=== PATIENT | female | born 1940 | race Caucasian/White ===

== ENCOUNTER → 2022-12-15 | Outpatient (CLI) | payer MEDICARE ==
[~2022-12-15] MED LIST: IBP600T1 PO; MULT-963 PO
--- NOTE | 2022-12-15 20:10 | Diagnostic Imaging Report ---
Indication: Palpable lump left breast. Correlation is made with diagnostic mammogram earlier same day. Sonographic interrogation of the area of palpable lump medial left breast was performed. There are 2 circumscribed masses in the left breast at the 9:00 location, 4 to 5 cm from the nipple. The largest measures 1.8 x 1.4 x 1.8 cm. Adjacent to this is a 1.6 x 1.2 x 1.7 cm mass. This does show some cystic component but there are internal echoes, uncertain if this is solid versus a complex cystic mass. There is vascularity along the periphery but no definite internal vascularity. IMPRESSION: BI-RADS Category 4 Mixed echogenicity circumscribed mass at the 9:00 location of the left breast corresponding to the mammographic and palpable abnormalities. It is uncertain if this represents a complex cyst versus solid masses. Tissue sampling would be recommended. These would be amenable to ultrasound-guided biopsy. ACR BI-RADS Category 4: Suspicious abnormality. Result letter will be mailed to the patient. Note: At least 10% of breast cancer is not imaged by mammography. Dictated by: Dictated on workstation # [id number]
--- NOTE | 2022-12-15 20:15 | Diagnostic Imaging Report ---
Indication: Palpable lump, left breast. No prior mammograms are available for comparison. 2-D and 3-D bilateral diagnostic mammography was performed with CAD. A BB marker was placed at the area of palpable abnormality in the medial left breast. Both breasts are heterogeneously dense, limiting the sensitivity of mammography. There are 2 circumscribed masses in the medial aspect of the left breast at the area of palpable abnormality. No other masses are seen. There are benign calcifications. No malignant-appearing microcalcifications are seen. Axillae are unremarkable. IMPRESSION: BI-RADS 0 Circumscribed masses medial left breast at the area of palpable abnormality. Further evaluation with ultrasound is recommended and will be performed today. ACR BI-RADS Category 0: Incomplete. (Needs additional imaging evaluation). Result letter will be mailed to the patient. Note: At least 10% of breast cancer is not imaged by mammography. Dictated by: Dictated on workstation # [id number]
== END ==
LOC: RAD 13:30
PROVIDERS: ATTEND Family Medicine
DX: N63.20 Unspecified lump in the left breast, unspecified quadrant (principal)
CPT/HCPCS: 76642; 77066; G0279; 77062

== ENCOUNTER → 2022-12-19 | Outpatient (CLI) | payer MEDICARE ==
[~2022-12-19] VITALS: Ht 157.5 cm; Wt 61.8 kg
[~2022-12-19] MED LIST changes: +LIDOCAINE 1% INJ 10 ML VIAL INJ ONE; +LIDOCAINE 1% INJ 10 ML VIAL ONE
--- NOTE | 2022-12-19 10:22 | Diagnostic Imaging Report ---
INDICATION: Left breast nodule. Patient presents for aspiration and biopsy. Left breast was prepped and draped in the usual sterile fashion. The dominant complex nodule in the inferior 9:00 location of the left breast was accessed using an 18-gauge needle, using sonographic guidance. Aspiration was performed. A small amount of bloody fluid was removed. This will be sent to lab for cytology. Needle was withdrawn, hemostasis was obtained. Patient tolerated the procedure well. IMPRESSION: Successful aspiration of the dominant complex mass in the inferior 9:00 location left breast, utilizing sonographic guidance. Pathology results are currently pending. Dictated by: Dictated on workstation # [id number]
--- NOTE | 2022-12-19 12:28 | Diagnostic Imaging Report ---
INDICATION: Left breast nodules. Patient presents for ultrasound-guided core biopsy. Left breast was prepped and draped in usual sterile fashion. A small amount 1% lidocaine was utilized for local anesthesia. Multiple core biopsies were obtained of the complex nodule in the superior 9 o'clock location of the left breast utilizing 14-gauge Achieve needle. The needle was withdrawn and hemostasis was obtained. Patient tolerated the procedure well. IMPRESSION: Successful ultrasound-guided core biopsy of the complex nodule in the superior 9 o'clock location of the left breast. Pathology results are currently pending. Dictated by: Dictated on workstation # [id number]
--- NOTE | 2022-12-19 12:32 | Diagnostic Imaging Report ---
INDICATION: Left breast nodule. Patient presents for core biopsy. Left breast was prepped and draped in the usual sterile fashion. Small amount 1% lidocaine was utilized for local anesthesia. Multiple core biopsies were obtained of the dominant complex nodule in the inferior 9 o'clock location of the left breast utilizing a 14-gauge Achieve needle. A marker clip was then deployed. Hemostasis was obtained using manual compression. Patient tolerated the procedure well. IMPRESSION: Successful ultrasound-guided core biopsy of the dominant complex nodule inferior 9 o'clock location left breast. Pathology results are currently pending. Dictated by: Dictated on workstation # [id number]
--- NOTE | 2022-12-19 12:39 | Diagnostic Imaging Report ---
INDICATION: Left breast masses. Patient is status post ultrasound-guided aspiration and biopsy of the medial left breast masses. Unilateral left 2-D CC and ML mammography was performed after patient underwent left breast aspirations and biopsies. There is a marker clip in the dominant lesion in the medial left breast. IMPRESSION: Marker clip placement medial left breast mass, status post ultrasound-guided biopsy. Dictated by: Dictated on workstation # [id number]
--- NOTE | 2022-12-19 12:46 | Diagnostic Imaging Report ---
INDICATION: Left breast nodule. PROCEDURE: Patient presents for ultrasound-guided aspiration. The left breast was prepped and draped in the usual sterile fashion. A small amount of 1% lidocaine was utilized for local anesthesia. An 18-gauge needle was advanced into the complex nodule in the superior 9:00 location of the left breast. A small amount of fluid was aspirated. Fluid was blood tinged. Needle was removed. Hemostasis was obtained. The patient tolerated the procedure well. IMPRESSION: Successful ultrasound guided aspiration of the complex nodule in the superior 9:00 location of the left breast. Fluid will be sent for cytology. Dictated by: Dictated on workstation # [id number]
== END ==
LOC: RAD 08:14
PROVIDERS: ATTEND Nurse Practitioner Family
DX: N63.20 Unspecified lump in the left breast, unspecified quadrant (principal); R92.8 Other abnormal and inconclusive findings on diagnostic imaging of breast; Z98.82 Breast implant status
CPT/HCPCS: 19083; 19084; 77065; A4648; G0279; 10005

== ENCOUNTER 2023-01-06 09:33 | Outpatient (RCR) | payer MEDICARE ==
[~2023-01-06 09:33] MED LIST changes: -LIDOCAINE 1% INJ 10 ML VIAL INJ ONE; -LIDOCAINE 1% INJ 10 ML VIAL ONE
[2023-01-07] MEDS ORDERED: DOXY100C5 PO ×2 (15:10)
[2023-01-07] MEDS ORDERED: METR45CR TP ×2 (15:10)
[2023-01-07] MEDS ORDERED: DOCU-26 PO ×2 (15:10)
[2023-01-14] MEDS ORDERED: ACHD5005 PO ×2 (11:29)
== END 2023-01-24 | disposition home or self-care (01) ==
LOC: ONC 09:33
PROVIDERS: ATTEND Internal Medicine Hematology & Oncology
DX: C50.912 Malignant neoplasm of unspecified site of left female breast (principal)

== ENCOUNTER 2023-01-07 05:59 | Outpatient (CLI) | payer MEDICARE ==
[~2023-01-07] VITALS: Ht 165.1 cm; Wt 67.3 kg
[2023-01-07] MEDS ORDERED: METR45CR TP (15:10)
[2023-01-07] MEDS ORDERED: DOCU-26 PO (15:10)
[2023-01-07] MEDS ORDERED: DOXY100C5 PO (15:10)
== END 2023-01-07 15:39 | disposition home or self-care (01) ==
LOC: PREOP 05:59
PROVIDERS: ATTEND Surgery
DX: Z01.818 Encounter for other preprocedural examination (principal)

== ENCOUNTER 2023-01-14 08:53 | Day surgery (SDC) | payer MEDICARE ==
[~2023-01-14] VITALS: Ht 165.1 cm; Wt 67.3 kg
[2023-01-14] VITALS (11 sets, daily range): BP systolic 124–143; BP diastolic 57–66
[~2023-01-14 08:53] MED LIST changes: +DOCU-26 PO; +DOXY100C5 PO; +METR45CR TP
[2023-01-14] MEDS ORDERED: LIDOCAINE/EPI 1%-1:200,000 (XYLOCAINE) 30 ML VIAL ONE (09:12)
[2023-01-14] MEDS ORDERED: ceFAZolin INJECTION 2,000 MG ONE (10:10)
[2023-01-14] MEDS ORDERED: NS (IVPB) 50 ML 50 ML ONE (10:10)
[2023-01-14] MEDS ORDERED: fentaNYL INJECTION 100 MCG/2 ML VIAL ONE (10:14)
[2023-01-14] MEDS ORDERED: proPOfol INJECTION 200 MG/20 ML VIAL IV ONE (10:14)
[2023-01-14] MEDS ORDERED: ONDANSETRON INJECTION 4 MG/2 ML (SDV) ONE (10:14)
[2023-01-14] MEDS ORDERED: LIDOCAINE PF 2% 5 ML VIAL ONE (10:14)
[2023-01-14] MEDS ORDERED: CATHETER FLUSH 10 ML SYR IVP PRN (10:15)
[2023-01-14] MEDS ORDERED: ceFAZolin INJECTION 2,000 MG in NS (IVPB) 50 ML 50 ML IV ONE (10:15)
[2023-01-14] MEDS ORDERED: LACTATED RINGERS 1,000 ML 1,000 ML IV PRN (10:15)
--- NOTE | 2023-01-14 10:18 | Progress Note-Pre Operative ---
Pre-Operative Progress Note Date of Available H&P: Dec 30, 2022 Date H&P Reviewed: Jan 14, 2023 Time H&P Reviewed: 10:15 History & Physical: H&P Reviewed, Patient Examed, No changes noted Pre-Operative Diagnosis: Left breast Papillary CA, site marked ABHIJIT VASQUEZ DO Jan 14, 2023 10:18
[2023-01-14] MEDS ORDERED: LIDOCAINE/EPI 1%-1:200,000 (XYLOCAINE) 30 ML VIAL INJ ONE (10:45)
[2023-01-14] MEDS ORDERED: SEVOFLURANE (ULTANE) 15 ML INHAL SOLN ONE (11:13)
--- NOTE | 2023-01-14 11:22 | Anesthesia-General Post-Op ---
General Patient Condition Mental Status/LOC: Same as Preop Cardiovascular: Satisfactory Nausea/Vomiting: Absent Respiratory: Satisfactory Pain: Controlled Complications: Absent Post Op Complications Complications None Follow Up Care/Instructions Patient Instructions None needed. Anesthesia/Patient Condition Patient Condition Patient is doing well, no complaints, stable vital signs, no apparent adverse anesthesia problems. No complications reported per nursing. HUMBERTO HUDDLESTON CRNA Jan 14, 2023 11:22
--- NOTE | 2023-01-14 11:28 | Progress Note-Post Operative ---
Post-Operative Progess Note Surgeon (s)/Strategic Marketing Manager (s) Surgeon ABHIJIT VASQUEZ DO Strategic Marketing Manager: LIZ Mccarthy Pre-Operative Diagnosis Left breast Papillary CA, site marked Post-Operative Diagnosis same pending pathology Procedure & Operative Findings Date of Procedure 01/14/23 Procedure Performed/Findings Left Partial Mastectomy Anesthesia Type LMA Estimated Blood Loss Estimated blood loss (mL): less than 5ml Specimens/Packing Specimens Removed left breast tissue, skin and mass ABHIJIT VASQUEZ DO Jan 14, 2023 11:28
[2023-01-14] MEDS ORDERED: ACHD5005 PO ×2 (11:29)
[2023-01-14] MEDS ORDERED: fentaNYL INJECTION 100 MCG/2 ML VIAL IVP ONE (11:30)
[2023-01-14] MEDS ORDERED: ONDANSETRON INJECTION 4 MG/2 ML (SDV) IVP PRN (11:30)
--- NOTE | 2023-01-14 11:30 | Discharge Inst-Surgical ---
Discharge Inst-Surgical Depart Medication/Instructions New, Converted or Re-Newed RX: Transmitted to Pharmacy Patient Instructions Follow up Appt: Make appointment for 1 week. [phone] Instructions: No lifting greater than 20 pounds. No strenuous activity. May shower in 24 hours, no tub bath or soaking. Use incentive spirometer at home as directed. No Smoking Skin/Wound Care: May remove bandages in am. You need to leave the Dermabond on incision it will fall off on it's own. Symptoms to Report: Appetite Changes, Extremity Discoloration, Numbness/Tingling, Swelling Increased, Bleeding Excessive, Eyesight Changes, Pain Increased, Urine Color Change, Constipation(Persistent), Fever over 101 degree F, Pain/Pressure in chest, Urinating Difficulty, Cough Up/Vomit Blood, Heart Beat Irreg/Pounding, Pain/Pressure in jaw, Cramps in feet or legs, Lightheadedness, Pain/Pressure in shoulder, Diarrhea(Persistent), Memory Changes Suddenly, Questions/Concerns, Weight gain consecutive days, Dizziness/Fainting, Nausea/Vomiting, Shortness of Breath, Weight gain over 2 pounds If questions or concerns contact your physician Or seek help at emergency department. Activity Activity as Tolerated: Yes Activity Instructions: Avoid Stress to Incision Driving Instructions: No Driving/Refer to Dr. Kern Discharge Diet: No Restrictions Diet After 24 Hours: Clear Liquid if Nauseous If Any Problems/Questions/Issu: Contact Your Physician, Go to Emergency Room Skin/Wound Care Infection Signs and Symptoms: Increased Redness, Foul Odor of Wound, Increased Drainage, Skin Itchy or Has a Rash, Increased Swelling, Temperature Above 101 F Wound Care Comment: wear tight bra for next week, 24 hours a day except to shower Bathing Instructions: Shower Stitches/Rembert/Dermabond Dis: Dermabond ABHIJIT VASQUEZ DO Jan 14, 2023 11:30
--- NOTE | 2023-01-14 21:36 | OPERATIVE REPORT ---
DATE OF SERVICE: 01/14/2023 PREOPERATIVE DIAGNOSIS: Left breast papillary carcinoma. POSTOPERATIVE DIAGNOSIS: Left breast papillary carcinoma, pending pathology. PROCEDURE: Left partial mastectomy. SURGEON: Yoni Gonzalez DO SUPERVISOR CLEANING AND ANNEALING: ANNETTA Mccarthy. ANESTHESIA: LMA. SPECIMENS: Left breast mass. BLOOD LOSS: Less than 5 mL FLUIDS: Per anesthesia. POSTOPERATIVE CONDITION: Stable. INDICATIONS FOR PROCEDURE: The patient is an 82-year-old female who had a mass in the left breast, biopsy done showed papillary carcinoma, this is an in situ carcinoma and elected not to do lymph nodes, the patient did not want them done. FINDINGS: The patient had a left breast mass sent to pathology. DESCRIPTION OF PROCEDURE: After informed consent was obtained, the patient was brought to the operating room and placed on the table in supine position. She was sterilely prepped and draped in normal fashion. An elliptical incision was made over the masses. These were right along the 9 o'clock position basically in between right in the middle of the inner upper and lower quadrants. Infiltrated the skin with local, had drawn on the skin elliptical area, then made an incision with #15 blade, carried down through skin into subcutaneous tissue, then deepened down to subcutaneous tissue with Bovie electrocautery, creating flaps. The superior and inferior direction with Bovie electrocautery going down all the way to the pectoralis major muscle and excising this portion of the breast, basically part of the upper and lower inner quadrants, removing this en bloc, passed off the table suturing once superiorly at the 12 o'clock position which was laterally, but closer to the nipple at the 3 o'clock position a long stitch and then at the base, right where we took it off the chest wall with 2 sutures. This was passed off the table. Area was copiously irrigated with sterile water. Hemostasis obtained, then elected to close this incision closing in 2 layers, closing the deep tissue with a 3-0 Vicryl four interrupted sutures, then closed the skin with 4-0 undyed Monocryl in running subcuticular fashion. Area was cleaned and dried. Pressure and fluff dressings placed as well as Dermabond. The patient tolerated the procedure. Sponge and needle count correct at the end of the case. Job ID: [id number] DocumentID: [id number] Dictated Date: 01/14/2023 15:25:31 [employer] Operator Date: 01/14/2023 21:33:00 Dictated By: YONI GONZALEZ DO
== END 2023-01-14 13:18 ==
LOC: SDC 08:53
PROVIDERS: ATTEND Surgery
DX: C50.912 Malignant neoplasm of unspecified site of left female breast (principal)
CPT/HCPCS: 87081

== ENCOUNTER 2023-02-04 14:13 | Outpatient (RCR) | payer MEDICARE ==
[~2023-02-04 14:13] MED LIST changes: +ACHD5005 PO
== END 2023-02-24 | disposition home or self-care (01) ==
LOC: ONC 14:13
PROVIDERS: ATTEND Internal Medicine Hematology & Oncology
DX: C50.912 Malignant neoplasm of unspecified site of left female breast (principal)
CPT/HCPCS: 99214